=== PATIENT | female | born 1965 | race Caucasian/White ===

== ENCOUNTER 2016-05-11 12:14 | Outpatient (CLI) | payer OTHER | END 2016-05-11 23:00 | LOC: LAB SRH 12:14 | DX: I10 Essential (primary) hypertension (principal) | CPT/HCPCS: 90074; 90100; 91286; 92690 ==

== ENCOUNTER 2016-05-13 15:52 | Outpatient (CLI) | payer OTHER | END 2016-05-13 23:00 | disposition home or self-care (01) | LOC: RT SRH 15:52 | PROC: 4A02XM4 Measurement of Cardiac Total Activity, External Approach (ICD-10-PCS; principal; 2016-05-13) | DX: R07.89 Other chest pain (principal) ==